=== PATIENT | female | born 1995 | race Caucasian/White ===

== ENCOUNTER 2019-05-25 01:48 | Emergency (ER) | payer BC ==
[~2019-05-25] VITALS: Ht 152.4 cm; Wt 68.0 kg
--- NOTE | 2019-05-25 02:03 | NUR ---
Dr. Casas at bedside for MSE.
[2019-05-25] MEDS ORDERED: HYDROCODONE/APAP 5-325MG TABLET ONE (02:12)
[2019-05-25] MEDS ORDERED: TDAP DIPH,PERTUSS,TET VAC/PF 0.5 ML DISP.SYRIN IM ONE ×2 (02:12→02:15)
[2019-05-25] MEDS ORDERED: NEOMY/BACITRA/POLYMYXIN B OINT UD PACKET TP ONE ×2 (02:12→02:15)
[2019-05-25] MEDS ORDERED: HYDROCODONE/APAP 5-325MG TABLET PO ONE (02:15)
--- NOTE | 2019-05-25 02:30 | NUR ---
Patient discharged to home in stable conditon. Written and verbal after care instructions given. Patient verbalizes understanding of instructions. Pt ambulated out of ER with steady gait, no acute signs of distress, VSS, all belongings taken.
[2019-05-25 02:31] VITALS: BP 140/92
[2019-05-25] MEDS ORDERED: RABIES IMMUNE GLOBULIN/PF 150 UNIT/ML VIAL IM ONE (05:00)
[2019-05-25] MEDS ORDERED: RABIES VACCINE (PCEC)/PF 2.5 UNIT ML IM ONE ×2 (05:00→05:14)
--- NOTE | 2019-05-25 05:09 | NUR ---
called patient at 4:30 after speaking to poison control -- they recommend prophylactic treatment. Patient was told the seriousness of rabies and is returning immediately
[2019-05-25] MEDS ORDERED: RABIES IMMUNE GLOBULIN/PF 300 UNIT/ML 2 ML VIAL IM ONE ×2 (05:16→05:30)
--- NOTE | 2019-05-25 06:00 | NUR ---
Unable to find Rabies consent form. Modified Tetanus Consent form, sticker from vaccine vial placed on form. Addendum: 05/25/19 at 0619 by JACKSON Pt provided with Rabies vaccine information statement from [facility].
--- NOTE | 2019-05-25 06:36 | NUR ---
Patient discharged to home in stable conditon. Written and verbal after care instructions given. Patient verbalizes understanding of instructions. Pt out of ER with steady gait, no acute signs of distress, VSS, all belongings taken, was given return dates for completion of rabies vaccine series.
== END 2019-05-25 02:32 | disposition home or self-care (01) ==
LOC: ER 01:51
DX: S91.312A Laceration without foreign body, left foot, initial encounter (principal); S91.352A Open bite, left foot, initial encounter; F17.200 Nicotine dependence, unspecified, uncomplicated; W54.0XXA Bitten by dog, initial encounter; Y93.89 Activity, other specified; Y92.89 Other specified places as the place of occurrence of the external cause; Y99.8 Other external cause status
CPT/HCPCS: 70030-TC; 90376; 90715; A4217; A4663

== ENCOUNTER 2019-05-28 18:17 | Emergency (ER) | payer BC ==
[~2019-05-28] VITALS: Ht 152.4 cm; Wt 72.6 kg
[2019-05-28] MEDS ORDERED: RABIES VACCINE (PCEC)/PF 2.5 UNIT ML IM ONE ×2 (18:45→18:48)
--- NOTE | 2019-05-28 18:46 | NUR ---
[id number] BELTRAN AT BEDSIDE FOR MSE.
[2019-05-28] MEDS ORDERED: AMOXICILLIN-CLAVUL 875-125MG TABLET PO ONE (19:00)
[2019-05-28] MEDS ORDERED: AMOXICILLIN-CLAVUL 875-125MG TABLET ONE (19:15)
--- NOTE | 2019-05-28 19:15 | NUR ---
wound cleaned and dressing done. Patient discharged to home in stable conditon. Written and verbal after care instructions given. Patient verbalizes understanding of instructions. ambulatory and all belongings with patient.
[2019-05-28 19:17] VITALS: BP 102/65
== END 2019-05-28 19:18 | disposition home or self-care (01) ==
LOC: ER 18:17
DX: S91.312D Laceration without foreign body, left foot, subsequent encounter (principal); S81.852D Open bite, left lower leg, subsequent encounter; L08.9 Local infection of the skin and subcutaneous tissue, unspecified; F17.200 Nicotine dependence, unspecified, uncomplicated; W54.0XXD Bitten by dog, subsequent encounter
CPT/HCPCS: A4663

== ENCOUNTER 2019-06-18 23:07 | Emergency (ER) | payer BC ==
[~2019-06-18] VITALS: Ht 152.4 cm; Wt 72.6 kg
--- NOTE | 2019-06-18 23:24 | NUR ---
Dr Cartagena into eval patient
[2019-06-18] MEDS ORDERED: DEXAMETHASONE SOD PHOSPHATE 4 MG INJ IV ONE (23:30)
[2019-06-18] MEDS ORDERED: KETOROLAC TROMETHAMINE 30 MG INJ IVP ONE (23:30)
[2019-06-18] MEDS ORDERED: CEFTRIAXONE 1 G in IV DEXTROSE 5% 50 ML IV ONE (23:30)
[2019-06-18] MEDS ORDERED: MORPHINE SULFATE 4 MG/1 ML DISP.SYRIN ONE (23:41)
[2019-06-18] MEDS ORDERED: ONDANSETRON 4 MG/2 ML VIAL ONE (23:41)
[2019-06-18] MEDS ORDERED: DEXAMETHASONE SOD PHOSPHATE 10 MG INJ ONE (23:47)
[2019-06-18] MEDS ORDERED: KETOROLAC TROMETHAMINE 30 MG INJ ONE (23:47)
[2019-06-18] MEDS ORDERED: CEFTRIAXONE 1 G VIAL ONE (23:47)
[2019-06-18 23:48] LABS: BASOPHILS # (AUTO) 0.1 K/uL (0.0-8.0); BASOPHILS % (AUTO) 0.5 % (0.0-2.0); EOSINOPHILS # (AUTO) 0.1 K/uL (0.0-0.7); EOSINOPHILS % (AUTO) 0.9 % (0.0-7.0); HEMATOCRIT 42.1 % (31.2-41.9); HEMOGLOBIN 13.9 g/dL (10.9-14.3); LYMPHOCYTES # (AUTO) 3.2 K/uL (20.0-40.0); LYMPHOCYTES % (AUTO) 22.9 % (20.5-51.5); MEAN CORPUSCULAR HEMOGLOBIN 26.1 uug (24.7-32.8); MEAN CORPUSCULAR HGB CONC 33 g/dL (32.3-35.6); MONOCYTES # (AUTO) 0.7 K/uL (2.0-10.0); MONOCYTES % (AUTO) 5.1 % (0.0-11.0); NEUTROPHILS % (AUTO) 70.6 % (38.5-71.5); PLATELET COUNT (AUTO) 292 K/uL (179-408); RED BLOOD CELL COUNT(AUTO) 5.33 MIL/uL (3.63-4.92); WHITE BLOOD COUNT (AUTO) 14.1 K/uL (3.8-11.8)
[2019-06-18 23:56] LABS: CARBON DIOXIDE 27 mmol/L (21-32); CHLORIDE 101 mmol/L (98-107); CREATININE 0.7 mg/dL (0.6-1.3); GLUCOSE 114 mg/dL (74-106); POTASSIUM 3.5 mmol/L (3.5-5.1); UREA NITROGEN, BLOOD 13 mg/dL (7-18)
[2019-06-19] MEDS ORDERED: SWABABLE VALVE TRANSFER SET EA MC ONE (00:13)
[2019-06-19] MEDS ORDERED: IOHEXOL 300MG/ML 100 ML INFUS..BTL ONE (00:13)
[2019-06-19] MEDS ORDERED: IV NORMAL SALINE 250 ML IV ONE (00:13)
[2019-06-19 00:23] LABS: *MONOTEST NEGATIVE (NEGATIVE)
--- NOTE | 2019-06-19 01:01 | NUR ---
Radiology was contacted to reach out to [facility] for results
--- NOTE | 2019-06-19 01:19 | NUR ---
Patient discharged to home in stable conditon. Written and verbal after care instructions given. Patient verbalizes understanding of instructions. Patient ambulated with stable gait.
[2019-06-19 01:42] VITALS: BP 118/70
== END 2019-06-19 01:19 | disposition home or self-care (01) ==
LOC: ER 23:09
DX: J02.9 Acute pharyngitis, unspecified (principal); F17.200 Nicotine dependence, unspecified, uncomplicated
CPT/HCPCS: 36415; 70491; 80048; 84702; 85025; 86308; 86403; 96374; 96375; 99284; J0696; J1100; J1885; J2405; J7060; Q9967; 87070; A4663; J2270; J7050

== ENCOUNTER 2022-02-02 15:30 | Emergency (ER) | payer BC ==
[~2022-02-02] VITALS: Ht 152.4 cm; Wt 86.2 kg
[2022-02-02 16:50] LABS: *URINE HCG, QUAL NEGATIVE (NEGATIVE)
[2022-02-02] MEDS ORDERED: IBUP-1957 PO (18:08)
--- NOTE | 2022-02-02 18:19 | NUR ---
Patient discharged to home in stable condition. Written and verbal after care instructions given. Patient verbalizes understanding of instructions. Stressed follow up or return to ER for worsening s/s.
--- NOTE | 2022-02-02 18:22 | NUR ---
pt denies dizziness, n/v, chest pain
[2022-02-02 18:25] VITALS: BP 105/62
== END 2022-02-02 18:26 | disposition home or self-care (01) ==
LOC: ER 15:34
DX: S06.0X0A Concussion without loss of consciousness, initial encounter (principal); S30.0XXA Contusion of lower back and pelvis, initial encounter; S16.1XXA Strain of muscle, fascia and tendon at neck level, initial encounter; W01.198A Fall on same level from slipping, tripping and stumbling with subsequent striking against other object, initial encounter; Y93.E1 Activity, personal bathing and showering; Y92.012 Bathroom of single-family (private) house as the place of occurrence of the external cause; S22.079A Unspecified fracture of T9-T10 vertebra, initial encounter for closed fracture
CPT/HCPCS: 70450; 72125; 72131; 84703; A4663

== ENCOUNTER 2022-08-21 16:33 | Emergency (ER) | payer BC ==
[~2022-08-21] VITALS: Ht 152.4 cm; Wt 88.9 kg
[~2022-08-21 16:33] MED LIST: IBUP-1957 PO
--- NOTE | 2022-08-21 17:16 | NUR ---
MD at bedside for evaluation
[2022-08-21] MEDS ORDERED: LIDOCAINE VISCUS 2% 15 ML UDC ONE (17:29)
[2022-08-21] MEDS ORDERED: LIDOCAINE VISCUS 2% 15 ML UDC MM ONE (17:30)
[2022-08-21] MEDS ORDERED: MAG HYDROX/AL HYDROX/SIMETH 30 ML LIQUID UDC PO ONE (17:30)
[2022-08-21] MEDS ORDERED: MAG HYDROX/AL HYDROX/SIMETH 30 ML LIQUID UDC ONE (17:30)
[2022-08-21 17:57] LABS: *BILIRUBIN,URIN NEGATIVE (NEGATIVE); *CLARITY,URINE CLEAR (CLEAR); *COLOR,URINE YELLOW (YELLOW); *KETONES,URINE TRACE (NEGATIVE); *UROBILINOGEN,URINE 0.2 E.U./dl (NORMAL); LEUKOCYTE ESTERASE ,URINE NEGATIVE (NEGATIVE); NITRITE, URINE NEGATIVE (NEGATIVE); UGLUCOSE NEGATIVE (NEGATIVE)
[2022-08-21 17:58] LABS: *BLOOD, URINE TRACE (NEGATIVE)
[2022-08-21 17:59] LABS: *URINE HCG, QUAL POSITIVE (NEGATIVE)
[2022-08-21 18:02] LABS: HEMATOCRIT 37.3 % (31.2-41.9); MEAN CORPUSCULAR HEMOGLOBIN 27.2 uug (24.7-32.8); MEAN CORPUSCULAR VOLUME 82.2 fL (75.5-95.3); PLATELET COUNT (AUTO) 268 K/uL (179-408)
[2022-08-21 18:03] LABS: CREATININE 0.8 mg/dL (0.6-1.3); POTASSIUM 3.9 mmol/L (3.5-5.1)
[2022-08-21 18:03] LABS: BACTERIA,URINE NONE SEEN /HPF (NONE SEEN); RBC,URINE 0-3 /HPF (0-3); SQUAMOUS EPITHELIAL CELL,UR FEW /HPF (NONE SEEN); WBC,URINE NONE SEEN /HPF (0-3)
[2022-08-21 18:09] LABS: BILIRUBIN,DIRECT 0.1 mg/dL (0.0-0.2); BILIRUBIN,TOTAL 0.5 mg/dL (0.2-1.0); TOTAL PROTEIN, SERUM 7.2 g/dL (6.4-8.2)
--- NOTE | 2022-08-21 19:11 | NUR ---
Report given to BENEDICT Aguila.
--- NOTE | 2022-08-21 19:14 | NUR ---
pt a/o denies pain. pt has a pending pelvic ultrasound.
[2022-08-21] MEDS ORDERED: PREN-58 PO (19:31)
[2022-08-21 19:52] VITALS: BP 120/70
== END 2022-08-21 19:53 | disposition home or self-care (01) ==
LOC: ER 16:33
DX: O98.811 Other maternal infectious and parasitic diseases complicating pregnancy, first trimester (principal); Z3A.00 Weeks of gestation of pregnancy not specified; K29.70 Gastritis, unspecified, without bleeding; B96.81 Helicobacter pylori [H. pylori] as the cause of diseases classified elsewhere; R10.13 Epigastric pain; R10.11 Right upper quadrant pain
CPT/HCPCS: 36415; 83690; 84703; 85025; A4663

== ENCOUNTER 2023-07-25 12:19 | Emergency (ER) | payer BC ==
[~2023-07-25] VITALS: Ht 152.4 cm; Wt 81.6 kg
[~2023-07-25 12:19] MED LIST changes: +PREN-58 PO
[2023-07-25 12:33] VITALS: O2SAT 99
[2023-07-25 12:58] LABS: BASOPHILS % (AUTO) 0.6 % (0.0-2.0); EOSINOPHILS # (AUTO) 0.1 K/uL (0.0-0.7); EOSINOPHILS % (AUTO) 0.8 % (0.0-7.0); HEMATOCRIT 40.4 % (31.2-41.9); HEMOGLOBIN 13.2 g/dL (10.9-14.3); LYMPHOCYTES # (AUTO) 2.2 K/uL (0.8-4.8); LYMPHOCYTES % (AUTO) 30.6 % (20.5-51.5); MEAN CORPUSCULAR HEMOGLOBIN 27.1 uug (24.7-32.8); MEAN CORPUSCULAR HGB CONC 33 g/dL (32.3-35.6); MONOCYTES # (AUTO) 0.4 K/uL (0.1-1.30); MONOCYTES % (AUTO) 5.7 % (0.0-11.0); NEUTROPHILS # (AUTO) 4.4 K/uL (1.8-8.9); NEUTROPHILS % (AUTO) 62.3 % (38.5-71.5); PLATELET COUNT (AUTO) 232 K/uL (179-408); RED BLOOD CELL COUNT(AUTO) 4.87 MIL/uL (3.63-4.92); RED CELL DISTRIBUTION WIDTH 13.1 % (12.3-17.7)
[2023-07-25] MEDS ORDERED: IV NORMAL SALINE 1000 ML BAG IV ONE (13:00)
[2023-07-25] MEDS ORDERED: LIDOCAINE VISCUS 2% 15 ML UDC MM ONE (13:00)
[2023-07-25] MEDS ORDERED: MAG HYDROX/AL HYDROX/SIMETH 30 ML LIQUID UDC PO ONE (13:00)
[2023-07-25] MEDS ORDERED: FAMOTIDINE. 20 MG/2 ML VIAL IV ONE ×2 (13:00→13:04)
[2023-07-25] MEDS ORDERED: MAG HYDROX/AL HYDROX/SIMETH 30 ML LIQUID UDC ONE (13:04)
[2023-07-25 13:07] LABS: DIFFERENTIAL COMMENT 1
[2023-07-25 13:08] LABS: CREATININE 0.7 mg/dL (0.6-1.3); POTASSIUM 4.3 mmol/L (3.5-5.1)
[2023-07-25 13:10] LABS: *BILIRUBIN,URIN NEGATIVE (NEGATIVE); *BLOOD, URINE 2+ (NEGATIVE); *CLARITY,URINE CLEAR (CLEAR); *COLOR,URINE YELLOW (YELLOW); *KETONES,URINE NEGATIVE (NEGATIVE); *PROTEIN,URINE NEGATIVE (NEGATIVE); *UROBILINOGEN,URINE 0.2 E.U./dl (NORMAL); LEUKOCYTE ESTERASE ,URINE NEGATIVE (NEGATIVE); NITRITE, URINE NEGATIVE (NEGATIVE); PH,URINE 8.5 (5.0-8.0); UGLUCOSE NEGATIVE (NEGATIVE)
[2023-07-25 13:14] LABS: *URINE HCG, QUAL NEGATIVE (NEGATIVE)
[2023-07-25 13:14] LABS: ALBUMIN 3.6 g/dL (3.4-5.0); BILIRUBIN,DIRECT 0.1 mg/dL (0.0-0.2); BILIRUBIN,TOTAL 0.4 mg/dL (0.2-1.0); TOTAL PROTEIN, SERUM 7.3 g/dL (6.4-8.2)
[2023-07-25 13:43] LABS: RBC,URINE 0-3 /HPF (0-3); WBC,URINE NONE SEEN /HPF (0-3)
[2023-07-25 13:44] LABS: BACTERIA,URINE FEW /HPF (NONE SEEN); SQUAMOUS EPITHELIAL CELL,UR FEW /HPF (NONE SEEN)
[2023-07-25] MEDS ORDERED: FAMOTIDINE 20 MG TABLET ONE (14:05)
[2023-07-25] MEDS ORDERED: ONDA4TAB5 PO (14:13)
[2023-07-25] MEDS ORDERED: OMEP20CA15 PO (14:13)
[2023-07-25] MEDS ORDERED: FAMO-132 PO (14:13)
[2023-07-25] MEDS ORDERED: FAMOTIDINE 20 MG TABLET PO ONE (14:15)
== END 2023-07-25 15:15 | disposition home or self-care (01) ==
LOC: ER 12:19
DX: R10.13 Epigastric pain (principal); R07.89 Other chest pain; F17.210 Nicotine dependence, cigarettes, uncomplicated; Z79.1 Long term (current) use of non-steroidal anti-inflammatories (NSAID); Z79.899 Other long term (current) drug therapy
CPT/HCPCS: 99284; 71045; 80076; 80048; 81001; 84703; 83690; 85025; 36415; J7040; A4663; J3490

== ENCOUNTER 2024-12-27 10:38 | Emergency (ER) | payer BC ==
[~2024-12-27] VITALS: Ht 152.4 cm; Wt 81.6 kg
[~2024-12-27 10:38] MED LIST changes: +FAMO-132 PO; +OMEP20CA15 PO; +ONDA4TAB5 PO
[2024-12-27] MEDS ORDERED: ESCI10TA (10:45)
[2024-12-27 11:59] LABS: *URINE HCG, QUAL NEGATIVE (NEGATIVE)
[2024-12-27 12:46] VITALS: BP 110/70; TEMP 98; O2SAT 99
== END 2024-12-27 12:46 | disposition home or self-care (01) ==
LOC: ER 10:38
DX: S29.012A Strain of muscle and tendon of back wall of thorax, initial encounter (principal); F17.200 Nicotine dependence, unspecified, uncomplicated; M54.2 Cervicalgia; M06.9 Rheumatoid arthritis, unspecified; Z87.19 Personal history of other diseases of the digestive system; Z79.899 Other long term (current) drug therapy; Z60.2 Problems related to living alone; X50.0XXA Overexertion from strenuous movement or load, initial encounter; Y93.89 Activity, other specified; Y92.89 Other specified places as the place of occurrence of the external cause; Y99.8 Other external cause status
CPT/HCPCS: 72125; 84703; A4606; A4663